=== PATIENT | female | born 1960 | race Caucasian/White ===

== ENCOUNTER 2016-11-30 22:10 | Emergency (ER) | payer MEDICARE ==
[~2016-11-30] VITALS: Ht 154.9 cm; Wt 71.9 kg
[2016-11-30 22:10] VITALS: BP 110/75
[~2016-11-30 22:10] MED LIST: ACET325T16 PO; ALBU8.5H3 IH; ASPI325T4 PO; CEPH-264 PO; CEPH500C PO; CYCL10TA2 PO; DICY10CA53 PO; HYDR25TA PO; IPRA3AMP NEB; LEVO500T38 PO; MELO15TA6 PO; METF500T4 PO; MONT10TA9 PO; NAPR500T3 PO; Nicotine TD; OSEL75CA PO; PANT40TA5 PO; PRED-220 PO; PRED20TA PO; PRED50TA PO; Promethazine Hcl/Codeine PO; SIMV20TA3 PO; SOLI10TA PO; SUCR1TAB PO; SUCR1TAB29 PO; TEMA15CA6 PO; TEMA30CA6 PO; TIOT18CA IH; TRAM50TA PO; TRAZ50TA15 PO
--- NOTE | 2016-11-30 22:31 | PHYS DOC ---
General Stated Complaint: RIGHT HIP PAIN Time Seen by MD: 22:19 Source: patient, family Problems: History of Present Illness Initial Comments Patient here for right hip pain. Patient says she slipped and fell in the shower several days ago. When she fell, she had no antecedent symptoms. There is no chest pain shortness of breath or arrhythmia symptoms. There is no change in vision or speech. There is no headache. There is no focal extremity or neurologic complaints. This really does seem like a mechanical fall. She did not hit her head and there was no loss of consciousness seizure activity, this. Since she landed on the edge between the shower the floor on her right hip. She was able to get up afterwards and has been able walk around the last several days. However, she had increasing pain for the last several days mostly over the area of the lateral hip and gluteus area on the right. She's had no fever or chills with this. There is no runny nose or sore throat. There is no chest pain or shortness of breath. She has no neck or back pain. Is no nausea vomiting or abdominal pain. There is no change in bowel or bladder habits and no incontinence. She denies any other acute focal extremity or neurologic complaints except for the pain as previous described. She has been able to be up and about at home without a cane or a walker, though with increasing pain last several days. Patient's taken some cyuc-ule-hlacolp pain medicine for this at home without help. She notes this worse when she gets up and weightbears. There is no other increased or decreasing factors noted. Patient's past nuchal history is rock for COPD, sleep apnea, and diabetes. She does not check her sugar regularly at home. She does smoke half pack of cigarettes daily. She is a nonuser of ethanol. Allergies: Coded Allergies: erythromycin base (Verified Allergy, Intermediate, 05/29/16) tetracycline (Verified Allergy, Intermediate, 05/29/16) vancomycin (Verified Allergy, Intermediate, 05/29/16) Penicillins (Verified Allergy, Mild, 11/12/15) Past Medical History Medical History: COPD, diabetes, other Surgical History: noncontributory, cholecystectomy, other Social History Smoker: less than 1 pack/day Alcohol: none Review of Systems All Other Systems: Reviewed and Negative Physical Exam General Appearance: WD/WN, no apparent distress Neck: full range of motion, supple, normal inspection Respiratory: lungs clear, normal breath sounds, no respiratory distress Cardiovascular: regular rate, rhythm, no edema Gastrointestinal: non tender, soft, no organomegaly Back: no CVA tenderness, no vertebral tenderness, other Extremities: normal inspection, other Neurologic/Psychiatric: no motor/sensory deficits, alert, normal mood/affect, oriented x 3 Skin: normal color Lymphatic: no adenopathy Comments Generally this well-developed well-nourished white female in no acute distress. Vitals are as noted. Pertinent findings on physical exam shows the chest to be clear. Cardiac vascular exam shows regular rate and rhythm without murmur. The abdomen is soft and nontender without masses or organomegaly. There is no perineal findings. Back shows no thoracic or lumbar vertebral tenderness. She has some mild tenderness over the low right lumbosacral paraspinal areas and over the right gluteal area. There is no signs of trauma. Externally show no rashes, cyanosis, or edema. She does have some mild to moderate tenderness over the area of the greater trochanter of the right hip. No signs of trauma. The hip is not shortened or rotated. There is no gross deformity. There is no distal motor sensory or vascular deficits noted within the right lower extremity. Neurologic exam finds her to be awake alert oriented 4 and cooperative. Remainder of physical exam is clinically unremarkable. Orders, Labs, Meds Old charts notes several prior ER visits for rash, depression, COPD, cellulitis , and pneumonia. She was last admitted to the hospital in October 2015 for pneumonia as well. X-rays the right hip show what appears to be a little bony spur versus a possible old fracture off the greater trochanter. This appears to be well rounded is does not appear to be acute. There is no other acute changes per the emergency physician. 2300 Patient resting comfortably ER. I discussed the patient the x-ray finding. She has no past history of hip injury that she knows of. I discussed with that this may represent an old injury or some arthritic changes, but certainly don't see anything acute that would require any further evaluation and care. She's getting no pain relief with [id number] medications so I' ll prescribe her some Ultram and a muscle relaxer. She states she does not have any seizure history. We'll give her first dose tonight prior to departure from the ED. We discussed further home care including rest, elevation, range of motion exercises, and warm compresses to the area. She voices understanding of the need to follow-up with primary care or return to the ER sooner as needed if worsening anyway. She looks well, in no acute discomfort distress, okay for discharge home at this time with . ALISHA MÉNDEZ MD Nov 30, 2016 22:31
[2016-11-30] MEDS: TRAMADOL 50 MG TABLET. PO ONE (23:20)
[2016-11-30] MEDS: CYCLOBENZAPRINE 10 MG TABLET. PO ONE (23:20)
--- NOTE | 2016-12-01 07:43 | RAD ---
Pelvis with right hip, 3 views, 11/30/2016: History: Fall, pain Mild cortical irregularity and soft tissue calcification along the lateral margin of the greater trochanter appears to be chronic, related to a tendinous insertion site. No acute fracture or dislocation is identified. The hip joint spaces are well-maintained with only mild marginal spurring. IMPRESSION: No acute bony abnormality is detected.
== END 2016-11-30 23:25 | disposition home or self-care (01) ==
LOC: ER 22:16
DX: M25.551 Pain in right hip (principal); J44.9 Chronic obstructive pulmonary disease, unspecified; E11.9 Type 2 diabetes mellitus without complications; F17.210 Nicotine dependence, cigarettes, uncomplicated; Z88.0 Allergy status to penicillin; Z88.1 Allergy status to other antibiotic agents; W01.0XXA Fall on same level from slipping, tripping and stumbling without subsequent striking against object, initial encounter; Y93.E1 Activity, personal bathing and showering; Y99.8 Other external cause status; Y92.89 Other specified places as the place of occurrence of the external cause
CPT/HCPCS: 73502; 99284

== ENCOUNTER 2016-12-18 15:33 | Emergency (ER) | payer MEDICARE ==
[~2016-12-18] VITALS: Ht 154.9 cm; Wt 68.0 kg
[~2016-12-18 15:33] MED LIST changes: -ALBU8.5H3 IH; +ALBU8.5H8 IH; -ASPI325T4 PO; +ASPI325T8 PO; +CYCL-331 PO; -CYCL10TA2 PO; -LEVO500T38 PO; +LEVO500T59 PO; -SOLI10TA PO; +SOLI10TA2 PO; -SUCR1TAB29 PO; +SUCR1TAB35 PO
[2016-12-18] MEDS ORDERED: KETOROLAC 60 MG/2 ML VIAL. IM ONE (16:45)
[2016-12-18 17:15] VITALS: BP 136/71
[2016-12-18] MEDS ORDERED: HYDR-971 PO (17:40)
--- NOTE | 2016-12-18 17:40 | PHYS DOC ---
Past History Past Medical History: Anxiety, COPD, Depression, Diabetes Past Surgical History: Cholecystectomy, Hysterectomy Alcohol Use: None Drug Use: None Adult General Chief Complaint Chief Complaint: MECHANICAL FALL HPI HPI Patient is a 56-year-old female who complains of left leg pain since she fell on some stairs about 1:30. She and her were moving furniture. She knew she hurt her leg but she tried to "walk it off" and did not present for about 2 hours. She has been ambulatory since the fall occurred. She did not take any thing for pain. She states the pain is getting worse. She doesn't believe she injured herself anywhere else. sHe does have a history of neuropathy, she was prescribed gabapentin but couldn' t take it due to adverse reaction. She does not have a history of a pinched nerve or any leg pain problem like this in the past. Patient is requesting a Dr. Truong. Review of Systems Review of Systems Constitutional: Denies fever or chills [] Eyes: Denies change in visual acuity, redness, or eye pain [] HENT: Denies nasal congestion or sore throat [] Respiratory: Denies cough or shortness of breath [] Cardiovascular: Denies chest pain GI: Denies abdominal pain, nausea, vomiting, Musculoskeletal: As in history of present illness Integument: Denies rash or skin lesions [] Neurologic: Denies head injury Current Medications Current Medications Current Medications Medications (Trade) Dose Ordered Sig/[place] Start Time Stop Time Status Last Admin Dose Admin Ketorolac Tromethamine (Toradol) 60 mg 1X ONCE 12/18/16 16:45 12/18/16 16:46 DC 12/18/16 16:34 60 MG Allergies Allergies Allergies Coded Allergies Type Severity Reaction Last Updated Verified erythromycin base Allergy Intermediate 05/29/16 Yes tetracycline Allergy Intermediate 05/29/16 Yes vancomycin Allergy Intermediate 05/29/16 Yes Penicillins Allergy Mild 11/12/15 Yes Physical Exam Physical Exam Constitutional: Well developed, well nourished, tearful with pain, alert, mentating normally. HENT: Normocephalic, atraumatic, no evidence of head or facial injury Eyes: conjunctiva normal, no discharge. [] Neck: Normal range of motion, no tenderness, no stridor. [] Skin: Warm, dry, no erythema, no rash. [] Extremities: Left leg: Normal appearance. No deformity, no swelling, no evidence of injury. Distal pulses intact. Foot warm with capillary refill less than 2 seconds. Patient jumps and cries out with even light palpation of the left leg from the middle of the thigh, knee, to the mid calf. No knee effusion or swelling. It seems like her most significant pain is in the posterior thigh. The thigh muscle is tight but not spasming. She is able to move the leg when she pulls away from palpation although states that she cannot move the leg due to pain. Neurologic: Alert and oriented X 3, normal motor function, normal sensory function, no focal deficits noted. [] Current Patient Data Vital Signs Vital Signs Date Time Temp Pulse Resp B/P (MAP) Pulse Ox O2 Delivery O2 Flow Rate FiO2 12/18/16 17:15 95 20 136/71 (92) 96 Room Air 12/18/16 15:33 98.0 EKG EKG [] Radiology/Procedures Radiology/Procedures X-rays of the left femur including the hip and knee obtained and read by me. No acute bony injury. [] Course & Med Decision Making Course & Med Decision Making Pertinent Labs and Imaging studies reviewed. (See chart for details) 56-year-old lady who fell and injured her left leg but who has been ambulatory for 2 hours after the fall but has increasing pain as she tried to "walk it off ". She is bitterly complaining of pain right now but the patient and her have repeatedly asked if she could have a Dr. Truong. I did ask her to hold off on that until we could see some x-rays. She was given an injection of Toradol for pain and x-rays were obtained. No acute bony injury noted. Her pain distribution is in the posterior aspect of her leg from the mid thigh down to the mid calf. It's really not in a distribution that I would suspect hip, knee, or other bony injury. She might have a muscle strain or it could be a nerve contusion causing sciatica. I rechecked her after x-rays, she is happily drinking a Mr. Kirill. Talked to the patient about ice, NSAIDs, for acute muscle strain. Patient will be going home with her and she is stable for discharge. [] Dragon Disclaimer Dragon Disclaimer This chart was dictated in whole or in part using Voice Recognition software in a busy, high-work load, and often noisy Emergency Department environment. It may contain unintended and wholly unrecognized errors or omissions. Departure Departure: Impression: Primary Impression: Muscle strain of left thigh Disposition: 01 HOME, SELF-CARE Condition: STABLE Referrals: JANUARY TRINH (PCP) Patient Instructions: Muscle Strain, Huts-pl-Numn Additional Instructions: Ice 15-20 minutes out of every 1-2 hours. Stretch the muscles gently from time to time. Do not lay perfectly still for hours and let your muscles tighten up. Get up and move around. Ibuprofen 800 mg every 8 hours for pain and inflammation. Hydrocodone if needed for more severe pain, this is an opiate, it will be sedating and constipating. Do not take while driving. This may be combined with ibuprofen. Scripts Hydrocodone Bit/Acetaminophen (NORCO 5-325 TABLET) 1 Each Tablet 1-2 TAB PO Q4-6HRS, #8 TAB Prov: ATTILA HUGHES MD 12/18/16 ATTILA HUGHES MD December 18, 2016 17:40
--- NOTE | 2016-12-19 09:09 | RAD ---
Indication fall, pain. AP and lateral views of the left femur were obtained. No bony abnormality is seen
== END 2016-12-18 17:50 | disposition home or self-care (01) ==
LOC: ER 15:33
DX: S76.912A Strain of unspecified muscles, fascia and tendons at thigh level, left thigh, initial encounter (principal); J44.9 Chronic obstructive pulmonary disease, unspecified; E11.9 Type 2 diabetes mellitus without complications; Z88.1 Allergy status to other antibiotic agents; Z88.0 Allergy status to penicillin; W10.8XXA Fall (on) (from) other stairs and steps, initial encounter; Y93.89 Activity, other specified; Y99.8 Other external cause status; Y92.89 Other specified places as the place of occurrence of the external cause
CPT/HCPCS: 73552; 96372; 99284; J1885

== ENCOUNTER 2017-05-19 15:15 | Emergency (ER) | payer MEDICARE ==
[~2017-05-19] VITALS: Ht 154.9 cm; Wt 71.9 kg
[~2017-05-19 15:15] MED LIST changes: +HYDR-971 PO; -NAPR500T3 PO; +NAPR500T4 PO
[2017-05-19 15:25] VITALS: BP 115/72
[2017-05-19] MEDS ORDERED: IBUP800T19 PO ×2 (15:42→15:45)
--- NOTE | 2017-05-19 16:21 | ED.ADGEN ---
Past History Past Medical History: Anxiety, COPD, Depression, Diabetes Past Surgical History: Cholecystectomy, Hysterectomy Alcohol Use: None Drug Use: None Adult General HPI HPI This is a pleasant 57-year-old female who presents immersed with chief complaint of left lateral rib and soft tissue tenderness. The patient is wearing a Holter monitor for approximately a month. She has 7 days left. The site of the patient's tenderness is with patient has been placing the Holter monitor leads. I believe patient has some soft tissue irritation. There is no signs of cellulitis. There is mild tenderness to palpation. There is no changes to the bony structures there is no deformity there is no erythema. 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 Review of Systems Review of Systems Constitutional: Denies fever or chills [] Eyes: Denies change in visual acuity, redness, or eye pain [] HENT: Denies nasal congestion or sore throat [] Respiratory: The patient reports chronic cough and shortness of air.[] Cardiovascular: No additional information not addressed in HPI [] GI: Denies abdominal pain, nausea, vomiting, bloody stools or diarrhea [] : Denies dysuria or hematuria [] Musculoskeletal: Denies back pain or joint pain [] Integument: The patient reports a mild skin irritation near the site where the Holter monitor leads have been placed of course the past month.] Neurologic: Denies headache, focal weakness or sensory changes [] Endocrine: Denies polyuria or polydipsia [] Allergies Allergies Allergies Coded Allergies Type Severity Reaction Last Updated Verified erythromycin base Allergy Intermediate 05/29/16 Yes gabapentin Allergy Intermediate Rash 03/03/17 Yes lisinopril Allergy Intermediate ANGIOEDEMA 03/03/17 Yes tetracycline Allergy Intermediate 05/29/16 Yes vancomycin Allergy Intermediate 05/29/16 Yes Penicillins Allergy Mild 11/12/15 Yes Physical Exam Physical Exam Constitutional: Well developed, well nourished, no acute distress, non-toxic appearance. [] HENT: Normocephalic, atraumatic, bilateral external ears normal, oropharynx moist, no oral exudates, nose normal. [] Eyes: PERRLA, EOMI, conjunctiva normal, no discharge. [] Neck: Normal range of motion, no tenderness, supple, no stridor. [] Cardiovascular:normal pulses [] Lungs & Thorax: no respiratory distress, patient breathes easily, mild chest wall tenderness to this area[] Abdomen: Bowel sounds normal, soft, no tenderness, no masses, no pulsatile masses. [] Skin: Warm, dry, no erythema, no rash. [] Back: No tenderness, no CVA tenderness. [] Extremities: No tenderness, no cyanosis, no clubbing, ROM intact, no edema. [] Neurologic: Alert and oriented X 3, normal motor function, normal sensory function, no focal deficits noted. [] Psychologic: Affect normal, judgement normal, mood normal. [] Current Patient Data Vital Signs Vital Signs Date Time Temp Pulse Resp B/P (MAP) Pulse Ox O2 Delivery O2 Flow Rate FiO2 05/19/17 15:25 98.0 85 20 97 Room Air EKG EKG [] Radiology/Procedures Radiology/Procedures [] Course & Med Decision Making Course & Med Decision Making Pertinent Labs and Imaging studies reviewed. (See chart for details) Discussed patient with plan for close follow-up and the plan to start Motrin patient was agreeable for plan the patient agrees to plan for discharge.[] Final Impression Final Impression skin irritation[] Problems: Dragon Disclaimer Dragon Disclaimer This electronic medical record was generated, in whole or in part, using a voice recognition dictation system. BARBARA WELLINGTON MD May 19, 2017 16:21
== END 2017-05-19 15:54 | disposition home or self-care (01) ==
LOC: ER 15:15
DX: L98.8 Other specified disorders of the skin and subcutaneous tissue (principal); R05 Cough; R06.02 Shortness of breath; J44.9 Chronic obstructive pulmonary disease, unspecified; E11.9 Type 2 diabetes mellitus without complications; F41.9 Anxiety disorder, unspecified; F32.9 Major depressive disorder, single episode, unspecified; Z90.49 Acquired absence of other specified parts of digestive tract; Z90.710 Acquired absence of both cervix and uterus; Z88.1 Allergy status to other antibiotic agents; Z88.0 Allergy status to penicillin; Z88.8 Allergy status to other drugs, medicaments and biological substances
CPT/HCPCS: 99283

== ENCOUNTER 2017-08-14 11:41 | Emergency (ER) | payer MEDICARE ==
[~2017-08-14] VITALS: Ht 157.5 cm; Wt 68.0 kg
[~2017-08-14 11:41] MED LIST changes: +IBUP800T19 PO
[2017-08-14 12:00] VITALS: BP 122/85
[2017-08-14] MEDS ORDERED: ORPHENADRINE CITRATE 60 MG/2 ML VIAL. IM ONE (12:30)
[2017-08-14] MEDS ORDERED: ONDANSETRON ODT 4 MG TAB.RAPDIS PO ONE (12:30)
[2017-08-14] MEDS ORDERED: MORPHINE SULFATE 10 MG/ML SYRINGE. IM ONE (12:30)
--- NOTE | 2017-08-14 12:39 | ED.ADGEN ---
Past History Past Medical History: Anxiety, COPD, Depression, Diabetes Past Surgical History: Cholecystectomy, Hysterectomy Alcohol Use: None Drug Use: None Adult General Chief Complaint Chief Complaint Left shoulder neck pain HPI HPI Patient is a 57 female who presents with left-sided neck and shoulder pain radiating down left arm. Pain is worse with arm and shoulder movement. It is not associated with motor weakness or loss of sensation. Patient denies trauma or repetitive strain injury. No prior surgeries. No chest pain or shortness of breath. No other symptoms or complaints. Review of Systems Review of Systems ROS as per HPI All other systems were reviewed and found to be within normal limits, except as documented in this note. Current Medications Current Medications Current Medications Medications (Trade) Dose Ordered Sig/[place] Start Time Stop Time Status Last Admin Dose Admin Morphine Sulfate (Morphine 10mg Syringe) 10 mg 1X ONCE 08/14/17 12:30 08/14/17 12:31 DC 08/14/17 12:09 10 MG Ondansetron HCl (Zofran Odt) 4 mg 1X ONCE 08/14/17 12:30 08/14/17 12:31 DC 08/14/17 12:09 4 MG Orphenadrine Citrate (Norflex) 60 mg 1X ONCE 08/14/17 12:30 08/14/17 12:31 DC 08/14/17 12:09 60 MG Allergies Allergies Allergies Coded Allergies Type Severity Reaction Last Updated Verified erythromycin base Allergy Intermediate 05/29/16 Yes gabapentin Allergy Intermediate Rash 03/03/17 Yes lisinopril Allergy Intermediate ANGIOEDEMA 03/03/17 Yes tetracycline Allergy Intermediate 05/29/16 Yes vancomycin Allergy Intermediate 05/29/16 Yes Penicillins Allergy Mild 11/12/15 Yes Physical Exam Physical Exam Constitutional: Well developed, well nourished, moderate discomfort secondary pain. [] HENT: Normocephalic, atraumatic, bilateral external ears normal, oropharynx moist, no oral exudates, nose normal. [] Eyes: PERRLA, EOMI, conjunctiva normal, no discharge. [] Neck: Supple, left mid paravertebral cervical pain, tenderness reproducing complaint. [] Cardiovascular:Heart rate regular rhythm, no murmur [] Lungs & Thorax: Bilateral breath sounds clear to auscultation [] Abdomen: Bowel sounds normal, soft, no tenderness, no masses, no pulsatile masses. [] Skin: Warm, dry, no erythema, no rash. [] Back: No tenderness, no CVA tenderness. [] Extremities: L Shoulder, limited adduction, abduction and rotation secondary pain. [] Neurologic: Alert and oriented X 3, upper extremity, no sensation deficits, motor function intact on limited exam. []al. [] Current Patient Data Vital Signs Vital Signs Date Time Temp Pulse Resp B/P (MAP) Pulse Ox O2 Delivery O2 Flow Rate FiO2 08/14/17 12:09 20 95 EKG EKG [EKG: Normal sinus rhythm, no acute ST-T wave changes, QTC normal. EKG interpreted by this physician.] Radiology/Procedures Radiology/Procedures [] Course & Med Decision Making Course & Med Decision Making Pertinent Labs and Imaging studies reviewed. (See chart for details) [Reproducible radicular neck and shoulder pain without neurologic deficits. EKG reassuring. I do not suspect cardiac etiology. Pain addressed. Concern for possible rotator cuff injury versus needed disc versus foraminal stenosis. Recommendations are supportive care with close PCP follow-up for further evaluation and treatment.] Final Impression Final Impression [1. Left shoulder pain 2. Cervical radiculopathy] Problems: Dragon Disclaimer Dragon Disclaimer This electronic medical record was generated, in whole or in part, using a voice recognition dictation system. VIK GRAY DO Aug 14, 2017 12:39
--- NOTE | 2017-08-14 12:42 | RAD ---
Cervical spine radiograph 08/14/2017 Indication: Cervical spine pain. Comparison: None available. Technique: AP, lateral, odontoid and Fuchs view of the cervical spine are provided. Findings: Alignment of the cervical spine is normal. No acute fracture is identified. Vertebral body heights are maintained. Anterior marginal osteophytosis is noted. There is no prevertebral soft tissue swelling. Mild multilevel facet arthropathy. Mild uncovertebral joint disease is noted at C5-C6. Lateral masses of C1 articulate appropriately with the C2 vertebral body. Impression: No acute fracture or malalignment involving the cervical spine.
--- NOTE | 2017-08-14 12:44 | RAD ---
Exam: Left shoulder radiograph Indication: Left shoulder pain Comparison: None available Technique: 3 views of the left shoulder are provided. Findings: There is no acute fracture or dislocation involving the acromioclavicular and glenohumeral joints. No joint space narrowing. No soft tissue swelling. No osseous erosion or soft tissue gas. Bone mineralization is within normal limits. Impression: No acute fracture or dislocation.
--- NOTE | 2017-08-14 15:09 | EKG ---
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
== END 2017-08-14 12:55 | disposition home or self-care (01) ==
LOC: ER 11:41
DX: M54.12 Radiculopathy, cervical region (principal); M25.512 Pain in left shoulder; E11.9 Type 2 diabetes mellitus without complications; J44.9 Chronic obstructive pulmonary disease, unspecified; F41.9 Anxiety disorder, unspecified; F32.9 Major depressive disorder, single episode, unspecified; Z88.1 Allergy status to other antibiotic agents; Z88.0 Allergy status to penicillin; Z88.8 Allergy status to other drugs, medicaments and biological substances
CPT/HCPCS: 72040; 73030; 93005; 96372; 99284; J2270; J2360; Q0162

== ENCOUNTER 2017-11-22 12:49 | Inpatient (IN) | payer MEDICARE ==
[~2017-11-22] VITALS: Ht 160 cm; Wt 70.5 kg
[~2017-11-22 12:49] MED LIST changes: +NAPR-514 PO; -NAPR500T4 PO
[2017-11-22] MEDS ORDERED: IV NORMAL SALINE 1,000ML 1,000 ML IV SCH ×2 (13:21→14:51)
--- NOTE | 2017-11-22 13:27 | PHYS DOC ---
Past History Past Medical History: Anxiety, COPD, Depression, Diabetes, Hypertension Past Surgical History: Cholecystectomy, Hysterectomy Smoking: Cigarettes, Less than 1pk/day Alcohol Use: None Drug Use: None Adult General Chief Complaint Chief Complaint: SHORTNESS OF BREATH HPI HPI She is a pleasant 57 showed female with known history of hypertension, COPD and diabetes who is noncompliant on no medications at this time and presents with two-day history of shortness of breath. Patient noted yesterday some tightness or sore chest with difficulty taking a deep breath in noted increased exercise tolerance The sleep on 3 pillows last night and upright position. Patient denies any change in medications She is on none at this time says she's had subjective fevers and sweats with her productive cough for the last day. Patient denies any chest pain but there is chest tightness. She denies any nausea, vomiting, diarrhea she says she has exertional dyspnea is gotten progressively worse as well. She denies any swelling her lower legs, travel outside the country, recent antibiotics or steroid usage. She is never been intubated in the past. She denies any URI symptoms like runny nose or congestion is to productive cough without ear pain or ear drainage or hearing loss Differential diagnosis: Acute myocardial ischemia, heart failure, cardiac tamponade, bronchospasm, pulmonary embolism, pneumothorax, pulmonary infection i.e. bronchitis or pneumonia, upper airway obstruction, anaphylaxis, aspiration , psychogenic, pulmonary contusion, toxidrome, pneumomediastinum, noncardiogenic pulmonary edema or ARDS, COPD, tuberculosis, cystic fibrosis, asthma, high altitude pulmonary edema, valvular dysfunction, cardiac dysrhythmia , stroke, neuromuscular diseases like myasthenia gravis gravis, ALS, Guillain- Holland syndrome, metabolic acidosis to include diabetic ketoacidosis, sepsis, and obstructive disorders like massive obesity Review of Systems Review of Systems Constitutional: Positive for fevers and subjective chills Eyes: Denies change in visual acuity, redness, or eye pain [] HENT: Denies nasal congestion or sore throat [] Respiratory: Positive for productive cough and shortness of breath Cardiovascular: No additional information not addressed in HPI [] GI: Denies abdominal pain, nausea, vomiting, bloody stools or diarrhea [] : Denies dysuria or hematuria [] Musculoskeletal: Denies back pain or joint pain [] Integument: Denies rash or skin lesions [] Neurologic: Denies headache, focal weakness or sensory changes positive for decreased excess tolerance[] Endocrine: Denies polyuria or polydipsia [] All other systems were reviewed and found to be within normal limits, except as documented in this note. Allergies Allergies Allergies Coded Allergies Type Severity Reaction Last Updated Verified erythromycin base Allergy Intermediate 05/29/16 Yes gabapentin Allergy Intermediate Rash 03/03/17 Yes lisinopril Allergy Intermediate ANGIOEDEMA 03/03/17 Yes tetracycline Allergy Intermediate 05/29/16 Yes vancomycin Allergy Intermediate 05/29/16 Yes Penicillins Allergy Mild 11/12/15 Yes Physical Exam Physical Exam Other vital signs recorded the chart this time patient noted to be mildly tachycardic likely stress not hypoxic satting 97% on room air though she is mildly tachypnea Constitutional: Well developed, well nourished, he is sitting in a tripod position in no acute distress nontoxic but is speaking in 8-12 word sentences no audible wheezing HENT: Normocephalic, atraumatic, bilateral external ears normal, oropharynx dry with poor dentition no oral exudates, nose normal. Eyes: PERRLA, EOMI, conjunctiva normal, no discharge. [] Neck: Normal range of motion, no tenderness, supple, no stridor. [] Cardiovascular:Heart rate regular rhythm, no murmur [] Lungs & Thorax: Decreased breath sounds in all lung ceron with expiratory wheezing. No rhonchi at the bases Abdomen: Bowel sounds normal, soft, no tenderness, no masses, no pulsatile masses. [] Skin: Warm, dry, no erythema, no rash. [] Back: No tenderness, no CVA tenderness. [] Extremities: No tenderness, no cyanosis, no clubbing, ROM intact, no edema. [] Neurologic: Alert and oriented X 3, normal motor function, normal sensory function, no focal deficits noted. [] Psychologic: Affect normal, judgement normal, mood normal. [] EKG EKG []EKG read by me patient arrival at 1:38 PM 11/22/2017 demonstrates a sinus rhythm with a P wave there were QRS there is a MO interval 152 which is normal, there is a QRS width of 84 to normal, QTC is 453 which is normal. Patient has T- wave inversions in the anterior leads and no ST segment elevation or T-wave changes consistent with acute coronary ischemia. This is an abnormal EKG Radiology/Procedures Radiology/Procedures [] [facility] [address] [place] [id number] IMAGING REPORT Signed PATIENT: DUNCAN HATCH ACCOUNT: [id number] : 1960 LOCATION: ER AGE: 57 SEX: F EXAM STATUS: REG ER ORD. PHYSICIAN: CAROLYN WAKEFIELD MD REASON: sob PROCEDURE: CHEST PA & LATERAL CHEST PA LATERAL History: short of breath, smoker for 20+years Comparison: Two-view chest May 29, 2016. Findings: The cardiomediastinal silhouette is normal. Pulmonary vasculature is normal. Calcified granuloma right midlung. The lungs are clear. No pleural effusion or pneumothorax is seen. There is no acute bone abnormality. IMPRESSION: No acute cardiopulmonary process. Electronically signed by: Benjy Anderson MD (11/22/2017 2:34 PM) [id number] DICTATED AND SIGNED BY: BENJY ANDERSON MD DATE: 11/22/17 1432 CC: CAROLYN WAKEFIELD MD; JANUARY TRINH ~ Course & Med Decision Making Course & Med Decision Making Pertinent Labs and Imaging studies reviewed. (See chart for details) []She presents with shortness breath and smoker no history of COPD and not comply with medications. She has wheezing and tightness in her chest as well as decreased breath sounds bilaterally I will complete a CBC, CMP, troponin, proBNP , chest x-ray, EKG, and overdose assign Medrol, DuoNeb's ciprofloxacin and appropriate supportive medications to help reduce her stress of breathing. Patient does not need BiPAP or CPAP at this time she is a known smoker happy with continued to smoke she is noncompliant with medications and that is purposeful she does not believe she needs them. Differential diagnosis: Acute myocardial ischemia, heart failure, cardiac tamponade, bronchospasm, pulmonary embolism, pneumothorax, pulmonary infection i.e. bronchitis or pneumonia, upper airway obstruction, anaphylaxis, aspiration , psychogenic, pulmonary contusion, toxidrome, pneumomediastinum, noncardiogenic pulmonary edema or ARDS, COPD, tuberculosis, cystic fibrosis, asthma, high altitude pulmonary edema, valvular dysfunction, cardiac dysrhythmia , stroke, neuromuscular diseases like myasthenia gravis gravis, ALS, Guillain- Holland syndrome, metabolic acidosis to include diabetic ketoacidosis, sepsis, and obstructive disorders like massive obesity was considered upon arrival given patient's noncompliance I believe this is likely COPD. A read by radiology reviewed by me demonstrate no acute pulmonary infiltrate or pulmonary edema Patient's EKG read by me as essentially unremarkable for signs of ischemia She received 3 duo nebs here in the emergency department as well as Solu-Medrol fluids and antibiotics. She is feeling better but she still feels short of breath. Her troponin is negative proBNP is negative. Patient's d-dimer is negative I will admit this patient to the hospital the fact she still feel short of breath I will admit her to the hospital under close evaluation for continued nebulizer treatments. We will continue to treat her with antibiotics as we wait for the blood cultures to be completed although there is no obvious evidence of cardiac ischemia at this time based on EKG and troponin findings and duration of symptoms patient obviously series of troponins completed and will see a floatman Laboratory Tests Test 11/22/17 13:00 11/22/17 13:35 11/22/17 13:45 Urine Collection Type Unknown Urine Color Straw Urine Clarity Clear Urine pH 6.5 Urine Specific [place] <=1.005 Urine Protein Neg (NEG-TRACE) Urine Glucose (UA) Neg mg/dL (NEG) Urine Ketones (Stick) Neg mg/dL (NEG) Urine Blood Neg (NEG) Urine Nitrite Neg (NEG) Urine Bilirubin Neg (NEG) Urine Urobilinogen Dipstick 0.2 mg/dL (0.2 mg/dL) Urine Leukocyte Esterase Neg (NEG) Urine RBC 0 /HPF (0-2) Urine WBC 0 /HPF (0-4) Urine Squamous Epithelial Cells Few /LPF Urine Bacteria 0 /HPF (0-FEW) White Blood Count 8.5 x10^3/uL (4.0-11.0) Red Blood Count 4.84 x10^6/uL (3.50-5.40) Hemoglobin 14.4 g/dL (12.0-15.5) Hematocrit 42.4 % (36.0-47.0) Mean Corpuscular Volume 88 fL (79-100) Mean Corpuscular Hemoglobin 30 pg (25-35) Mean Corpuscular Hemoglobin Concent 34 g/dL (31-37) Red Cell Distribution Width 13.3 % (11.5-14.5) Platelet Count 231 x10^3/uL (140-400) Neutrophils (%) (Auto) 71 % (31-73) Lymphocytes (%) (Auto) 23 % (24-48) L Monocytes (%) (Auto) 4 % (0-9) Eosinophils (%) (Auto) 1 % (0-3) Basophils (%) (Auto) 1 % (0-3) Neutrophils # (Auto) 6.1 x10^3uL (1.8-7.7) Lymphocytes # (Auto) 1.9 x10^3/uL (1.0-4.8) Monocytes # (Auto) 0.4 x10^3/uL (0.0-1.1) Eosinophils # (Auto) 0.1 x10^3/uL (0.0-0.7) Basophils # (Auto) 0.1 x10^3/uL (0.0-0.2) D-Dimer (Carolyn) 0.48 mg/L (0.00-0.50) Sodium Level 139 mmol/L (136-145) Potassium Level 3.4 mmol/L (3.5-5.1) L Chloride Level 101 mmol/L (98-107) Carbon Dioxide Level 27 mmol/L (21-32) Anion Gap 11 (6-14) Blood Urea Nitrogen 14 mg/dL (7-20) Creatinine 0.8 mg/dL (0.6-1.0) Estimated GFR (Cockcroft-Gault) 74.2 Glucose Level 192 mg/dL (70-99) H Lactic Acid Level 1.6 mmol/L (0.4-2.0) Calcium Level 9.1 mg/dL (8.5-10.1) Magnesium Level 1.8 mg/dL (1.8-2.4) Total Bilirubin 0.2 mg/dL (0.2-1.0) Direct Bilirubin < 0.1 mg/dL (0.0-0.2) Aspartate Amino Transferase (AST) 14 U/L (15-37) L Alanine Aminotransferase (ALT) 34 U/L (14-59) Alkaline Phosphatase 87 U/L (46-116) Creatine Kinase 44 U/L (26-192) Creatine Kinase MB (Mass) 0.9 ng/mL (0.0-3.6) Creatine Kinase MB Relative Index 2.0 % (0-4) Troponin I Quantitative < 0.017 ng/mL (0-0.055) MS-Wow-N-Type Natriuretic Peptide 12 pg/mL (0-124) Total Protein 7.1 g/dL (6.4-8.2) Albumin 3.7 g/dL (3.4-5.0) Lipase 117 U/L (73-393) Influenza Type A (Rapid) Negative (NEGATIVE) Influenza Type B (Rapid) Negative (NEGATIVE) Patient: Swab a and B are negative, patient's lactic acid is 1.6 which is negative, patient's LFTs are normal. [facility] note: Dr. LEATHA Torre [facility] called at of the service internal medicine service patient initially at 2:50 PM Consult called back at 2:51 PM Discussed the case I presented and they agreed with admission. Time of acceptance 2:51 PM "I have assessed this patient clinically and believe that their condition requires an admission to the hospital. After consulting the admitting physician about this case, they have asked that I admit this patient to their service as an inpatient based on the clinical presentation and my impression." Impression: COPD exacerbation, increased shortness of breath Dragon Disclaimer Dragon Disclaimer This electronic medical record was generated, in whole or in part, using a voice recognition dictation system. Departure Departure: Impression: Primary Impression: COPD with exacerbation Disposition: ADMITTED INPATIENT Admitting Physician: Robert Guthrie Condition: GUARDED Referrals: JANUARY TRINH (PCP) CAROLYN WAKEFIELD MD Nov 22, 2017 13:27
--- NOTE | 2017-11-22 13:42 | EKG ---
[address] [address] Test Date: 2017-11-22 Test Time: 13:38:45 Pat Name: DUNCAN HATCH Department: Room: Gender: F [employer]: : 1960 Requested By: CAROLYN WAKEFIELD Order Number: [id number] Reading MD: James Akins MD Measurements Intervals [place] Rate: 95 P: 35 ID: [id number] QRS: 51 QRSD: 84 T: 39 QT: 358 QTc: 453 Interpretive Statements SINUS RHYTHM Electronically Signed On 11-24-2017 16:38:23 CDT by James Akins MD
[2017-11-22] MEDS ORDERED: LORazepam 2 MG/ML VIAL IV ONE (13:45)
[2017-11-22] MEDS ORDERED: CIPROFLOXACIN 400MG PREMIX 200 ML IV ONE (13:45)
[2017-11-22] MEDS ORDERED: methylPREDNISolone SOD SUCC PF 125 MG/2 ML VIAL. IV ONE (13:45)
[2017-11-22] MEDS ORDERED: 0.9 % SODIUM CHLORIDE 10 ML DISP.SYRIN. IV ONE (13:45)
[2017-11-22] MEDS ORDERED: ALBUTEROL SULFATE 2.5 MG/3 ML NEBU. CONT NEB ONE (13:45)
[2017-11-22] MEDS ORDERED: ASPIRIN 81 MG TAB.CHEW PO ONE (13:45)
[2017-11-22] MEDS ORDERED: IPRATRPIUM/ALBUTEROL 0.5/2.5MG 3 ML NEBU. NEB ONE (13:45)
[2017-11-22 14:02] LABS: BASO # 0.1 x10^3/uL (0.0-0.2); BASO % 1 % (0-3); EOS # 0.1 x10^3/uL (0.0-0.7); EOS % 1 % (0-3); HEMATOCRIT 42.4 % (36.0-47.0); HEMOGLOBIN 14.4 g/dL (12.0-15.5); LYMPH # 1.9 x10^3/uL (1.0-4.8); LYMPH % 23 % (24-48); MEAN CORPUSCULAR HEMOGLOBIN 30 pg (25-35); MEAN CORPUSCULAR HGB CONC 34 g/dL (31-37); MEAN CORPUSCULAR VOLUME 88 fL (79-100); MONO # 0.4 x10^3/uL (0.0-1.1); MONO % 4 % (0-9); NEUT # 6.1 x10^3uL (1.8-7.7); NEUT % 71 % (31-73); PLATELET COUNT 231 x10^3/uL (140-400); RED BLOOD COUNT 4.84 x10^6/uL (3.50-5.40); RED CELL DISTRIBUTION WIDTH 13.3 % (11.5-14.5); WHITE BLOOD COUNT 8.5 x10^3/uL (4.0-11.0)
[2017-11-22 14:06] LABS: BACTERIA,URINE 0 /HPF (0-FEW); BILIRUBIN,URINE NEG (NEG); CLARITY,URINE CLEAR; COLOR,URINE STRAW; GLUCOSE,URINE NEG (NEG); NITRITE,URINE NEG (NEG); RBC,URINE 0 /HPF (0-2); UROBILINOGEN,URINE 0.2 mg/dL (0.2 mg/dL); WBC,URINE 0 /HPF (0-4)
[2017-11-22 14:07] LABS: SQUAMOUS EPITHELIAL CELL,UR FEW /LPF
[2017-11-22 14:11] LABS: INFLUENZA A PATIENT NEGATIVE (NEGATIVE)
[2017-11-22 14:12] LABS: INFLUENZA B PATIENT NEGATIVE (NEGATIVE)
[2017-11-22 14:16] LABS: ALBUMIN 3.7 g/dL (3.4-5.0); ALK PHOS 87 U/L (46-116); ALT (SGPT) 34 U/L (14-59); ANION GAP 11 (6-14); AST (SGOT) 14 U/L (15-37); BLOOD UREA NITROGEN 14 mg/dL (7-20); CALCIUM 9.1 mg/dL (8.5-10.1); CARBON DIOXIDE 27 mmol/L (21-32); CHLORIDE 101 mmol/L (98-107); CREATININE 0.8 mg/dL (0.6-1.0); GFR 74.2; GLUCOSE 192 mg/dL (70-99); LIPASE 117 U/L (73-393); MAGNESIUM 1.8 mg/dL (1.8-2.4); POTASSIUM 3.4 mmol/L (3.5-5.1); SODIUM 139 mmol/L (136-145); TOTAL BILIRUBIN 0.2 mg/dL (0.2-1.0); TOTAL PROTEIN 7.1 g/dL (6.4-8.2)
[2017-11-22 14:18] LABS: DIRECT BILIRUBIN < 0.1 mg/dL (0.0-0.2)
--- NOTE | 2017-11-22 14:37 | RAD ---
CHEST PA LATERAL History: short of breath, smoker for 20+years Comparison: Two-view chest May 29, 2016. Findings: The cardiomediastinal silhouette is normal. Pulmonary vasculature is normal. Calcified granuloma right midlung. The lungs are clear. No pleural effusion or pneumothorax is seen. There is no acute bone abnormality. IMPRESSION: No acute cardiopulmonary process. Electronically signed by: Benjy Anderson MD (11/22/2017 2:34 PM) [id number]
[2017-11-22] MEDS ORDERED: ACETAMINOPHEN 325 MG TABLET PO PRN (15:00)
[2017-11-22] MEDS ORDERED: ONDANSETRON PF 4 MG/2 ML VIAL. IV PRN (15:00)
[2017-11-22] MEDS ORDERED: MORPHINE SULFATE 4 MG/ML DISP.SYRIN. IV PRN (15:00)
[2017-11-22] MEDS ORDERED: IPRATRPIUM/ALBUTEROL 0.5/2.5MG 3 ML NEBU. NEB SCH (16:00)
[2017-11-22 17:18] VITALS: BP 95/59
--- NOTE | 2017-11-22 18:54 | HP ---
ADMIT DATE: 11/22/2017 HISTORY OF PRESENT ILLNESS: The patient is a 57-year-old female patient who came to the Emergency Room complaining of shortness of breath that started yesterday with some chest tightness and sore chest, difficulty taking a deep breath. She said she sleep on 3 pillows last night in upright position. She is not taking any medication. Did complain of subjective fevers, sweats with her productive cough the last day. She denied any chest pain, but chest tightness. Denied any nausea, vomiting, diarrhea, but her exertional dyspnea has progressively worse. Denied any swelling of the legs. She has not had any treatment with antibiotic or steroids recently. She has never been intubated in the past. She denied any upper respiratory infection symptoms. She was investigated in the Emergency Room, and basically was found that chest x-ray showed no evidence of any acute cardiopulmonary process and was admitted with diagnosis of COPD exacerbation. PAST MEDICAL HISTORY: Significant for COPD, type 2 diabetes. PAST SURGICAL HISTORY: Significant for cholecystectomy, carpal tunnel release x 2, ankle surgery. FAMILY HISTORY: Unremarkable. SOCIAL HISTORY: She lives with her daughter. She smokes a pack a day, does not drink alcohol or use recreational drugs. REVIEW OF SYSTEMS: As per history of present illness. PHYSICAL EXAMINATION GENERAL: When I examined her this afternoon, she was sitting slightly propped up in bed, in no apparent respiratory distress. No pallor, jaundice, cyanosis, or thyromegaly. No jugular venous distension. No lower limb edema. VITAL SIGNS: Her heart rate was 90, blood pressure was 95/59, temperature was 97.6, respiratory rate 20, and oxygen saturation was 96%. HEAD, EYES, EARS, NOSE AND THROAT: Showed normocephalic, atraumatic. NECK: Supple. HEART: Showed normal first and second heart sounds with no gallop, rub or murmur. CHEST: Showed that she has central trachea, equally reduced expansion, reduced air entry, vesicular breath sounds. I could not really appreciate any crepitation or rhonchi. ABDOMEN: Distended, soft, nontender. NEUROLOGICAL: She is awake, alert, responding appropriately. All cranial nerves are intact. She moves extremities without difficulty. She ambulates without assistance or assistive devices. LABORATORY DATA: White cell count of 8500, hemoglobin 14, hematocrit 42, MCV 88 and platelet count 231,000. Her serum sodium was 139, potassium 3.4, chloride 101, bicarbonate 27, anion gap 14, creatinine 0.8, estimated GFR was 74, glucose 192, calcium was 9.1, magnesium 1.8. Total bilirubin, AST, ALT, alkaline phosphatase were normal. Her total protein was 7.1, albumin 3.7. D-dimer was 0.48. Urinalysis was essentially unremarkable. Her influenza A and B were both negative. As I stated, her chest x-ray showed no acute cardiopulmonary process. ASSESSMENT AND PLAN: The patient was admitted and was given steroids and bronchodilator as well as ciprofloxacin. We will continue with all these medications, evaluate her tomorrow. LALO DOMINIQUE MD DR: SHANICE/maine JOB#: [id number] / [id number]
[2017-11-22 19:30] VITALS: BP 131/81
[2017-11-22] MEDS: CIPROFLOXACIN HCL 500 MG TABLET PO SCH (20:33)
[2017-11-22] MEDS: metFORMIN XR 500 MG TAB.ER.24H PO SCH (20:33)
[2017-11-22] MEDS: MONTELUKAST 10 MG TABLET. PO SCH (20:33)
[2017-11-22] MEDS: LACTOBACILLUS RHAMNOSUS GG 1 CAPSULE. PO SCH (20:33)
[2017-11-22] MEDS: IPRATRPIUM/ALBUTEROL 0.5/2.5MG 3 ML NEBU. NEB SCH (21:19)
[2017-11-22] MEDS: methylPREDNISolone SOD SUCC PF 40 MG/ML VIAL. IV SCH (22:00)
[2017-11-22 22:50] VITALS: BP 113/70
[2017-11-23] MEDS: methylPREDNISolone SOD SUCC PF 40 MG/ML VIAL. IV SCH ×3 (05:33→21:29)
[2017-11-23 05:40] VITALS: BP 129/71
[2017-11-23] MEDS: IPRATRPIUM/ALBUTEROL 0.5/2.5MG 3 ML NEBU. NEB SCH ×4 (05:46→21:15)
[2017-11-23] MEDS: CIPROFLOXACIN HCL 500 MG TABLET PO SCH ×2 (08:04→21:28)
[2017-11-23] MEDS: LACTOBACILLUS RHAMNOSUS GG 1 CAPSULE. PO SCH ×2 (08:04→21:28)
[2017-11-23] MEDS: metFORMIN XR 500 MG TAB.ER.24H PO SCH ×2 (08:04→17:04)
[2017-11-23 10:21] VITALS: BP 154/76
[2017-11-23 14:42] VITALS: BP 110/60
[2017-11-23] MEDS: ACETAMINOPHEN 325 MG TABLET PO PRN (15:18)
[2017-11-23 19:12] VITALS: BP 141/76
[2017-11-23] MEDS ORDERED: POLYETHYLENE GLYCOL 3350 17 GM PACKET. PO PRN (20:00)
--- NOTE | 2017-11-23 21:11 | PN ---
DATE: 11/23/2017 SUBJECTIVE: The patient is sitting in the edge of the bed. Continued to have marked wheezing and chest tightness. Did have cough, is mostly dry, and continued to complain of shortness of breath on exertion, although her oxygen saturation is actually 95-94% on room air. OBJECTIVE: GENERAL: When I examined her, she looked well. No pallor, jaundice, cyanosis, or thyromegaly. No jugular venous distension. No lower limb edema. VITAL SIGNS: Her heart rate was 97, blood pressure was 154/76, temperature was 98.2, respiratory rate was 20, and oxygen saturation was 96%. HEAD, EYES, EARS, NOSE AND THROAT: Showed normocephalic, atraumatic. NECK: Supple. HEART: Showed normal first and second sounds. No gallop or murmur. CHEST: Shows central trachea, equally reduced expansion, reduced air entry with diffuse rhonchi. I could not appreciate any crepitation. ABDOMEN: Distended, soft, nontender. NEUROLOGIC: She was awake, alert, responding appropriately. All cranial nerves intact. She moves extremities without difficulty. She ambulates without assistance or assistive devices. LABORATORY DATA: As of this morning showed that his white cell count was 8500, hemoglobin 14.4, hematocrit 42, MCV 88 and platelet count of 251,000. Her chemistry showed that her serum sodium was 139, potassium 3.4, chloride 101, bicarbonate 27, anion gap of 11, BUN 14, creatinine 0.8, calcium was 9.1, magnesium 1.8. ASSESSMENT: 1. Chronic obstructive pulmonary disease exacerbation. 2. Type 2 diabetes. PLAN: Continue with IV steroids. Continue with antibiotic in the form of ciprofloxacin, continue with albuterol and Atrovent as well as Singulair and decide further management accordingly. LALO DOMINIQUE MD DR: SHANICE/maine JOB#: [id number] / [id number]
[2017-11-23] MEDS: DOCUSATE SODIUM 100 MG CAPSULE PO SCH (21:28)
[2017-11-23] MEDS: MONTELUKAST 10 MG TABLET. PO SCH (21:28)
[2017-11-23 22:35] VITALS: BP 151/85
[2017-11-24] MEDS: ACETAMINOPHEN 325 MG TABLET PO PRN ×2 (04:58→10:41)
[2017-11-24 05:03] VITALS: BP 131/81
[2017-11-24] MEDS: methylPREDNISolone SOD SUCC PF 40 MG/ML VIAL. IV SCH (05:46)
[2017-11-24] MEDS: IPRATRPIUM/ALBUTEROL 0.5/2.5MG 3 ML NEBU. NEB SCH ×2 (05:50→09:46)
[2017-11-24 06:30] LABS: HEMATOCRIT 39.5 % (36.0-47.0); HEMOGLOBIN 13.1 g/dL (12.0-15.5); RED BLOOD COUNT 4.47 x10^6/uL (3.50-5.40); RED CELL DISTRIBUTION WIDTH 13.8 % (11.5-14.5); WHITE BLOOD COUNT 19.1 x10^3/uL (4.0-11.0)
[2017-11-24 06:39] LABS: ALBUMIN 3.6 g/dL (3.4-5.0); ALBUMIN/GLOBULIN RATIO 1.1 (1.0-1.7); CALCIUM 9.4 mg/dL (8.5-10.1); CREATININE 0.8 mg/dL (0.6-1.0); GFR 74.2; POTASSIUM 4.7 mmol/L (3.5-5.1); TOTAL BILIRUBIN 0.2 mg/dL (0.2-1.0)
[2017-11-24] MEDS: DOCUSATE SODIUM 100 MG CAPSULE PO SCH (08:04)
[2017-11-24] MEDS: LACTOBACILLUS RHAMNOSUS GG 1 CAPSULE. PO SCH (08:04)
[2017-11-24] MEDS: metFORMIN XR 500 MG TAB.ER.24H PO SCH (08:04)
[2017-11-24] MEDS: CIPROFLOXACIN HCL 500 MG TABLET PO SCH (08:04)
[2017-11-24 10:52] VITALS: BP 120/70
--- NOTE | 2017-11-24 18:00 | DS ---
DATE OF DISCHARGE: 11/24/2017 HOSPITAL COURSE: The patient is a 57-year-old female patient who came with a complaint of increasing shortness of breath, severe chest tightness and marked diminished air entry. She was admitted with COPD exacerbation, was started on IV steroids, IV antibiotics, and bronchodilators. She did actually extremely well. PHYSICAL EXAMINATION: GENERAL: When I saw her today, she was sitting on the edge of the bed comfortably, in no apparent distress. No pallor, jaundice, cyanosis, or thyromegaly. No jugular venous distension. No limb edema. VITAL SIGNS: Her heart rate was 100, blood pressure 120/70, temperature 97.4, respiratory rate 20, and oxygen saturation was 96% on room air. HEAD, EYES, EARS, NOSE AND THROAT: Normocephalic, atraumatic. NECK: Supple. HEART: Showed normal first and second heart sounds. No gallop, rub or murmur. CHEST: Clear to auscultation. No crepitation or rhonchi. Air entry is really dramatically improved. ABDOMEN: Soft, nontender. NEUROLOGIC: She was awake, alert, responding appropriately. Cranial nerves intact. EXTREMITIES: She moves extremities without difficulty. She ambulates without assistance or assistive devices. LABORATORY DATA: Lab work showed his white cell count slightly elevated at 19,000 secondary to steroids, hemoglobin 13, hematocrit 39, MCV 89 and platelet count of 356,000. Her chemistry showed a serum sodium 135, potassium 4.7, chloride 102, bicarbonate 22, anion gap of 11, BUN 20, creatinine 0.8, estimated GFR was 74 mL per minute. Her glucose 180, calcium was 9.4. Total bilirubin, AST, ALT, alkaline phosphatase were normal. Total protein 7, albumin 3.6. DISCHARGE MEDICATIONS: The patient was discharged home to continue on ciprofloxacin 500 mg twice a day for 5 days, metformin 500 mg extended release twice a day, pravastatin 20 mg once a day and also a tapering course of steroids. FINAL DISCHARGE DIAGNOSES: Chronic obstructive pulmonary disease exacerbation, type 2 diabetes, and hyperlipidemia. LALO DOMINIQUE MD DR: SHANICE/maine JOB#: [id number] / [id number]
== END 2017-11-24 14:00 | disposition home or self-care (01) | DRG 192 ==
LOC: ER 12:49 → 1 SOUTH 14:45
PROVIDERS: ADMIT Internal Medicine; ATTEND Internal Medicine
DX: J44.1 Chronic obstructive pulmonary disease with (acute) exacerbation (principal); E11.9 Type 2 diabetes mellitus without complications; E78.5 Hyperlipidemia, unspecified; F17.210 Nicotine dependence, cigarettes, uncomplicated; I10 Essential (primary) hypertension; F32.9 Major depressive disorder, single episode, unspecified; F41.9 Anxiety disorder, unspecified; Z90.710 Acquired absence of both cervix and uterus; Z90.49 Acquired absence of other specified parts of digestive tract; Z91.14 Patient's other noncompliance with medication regimen; Z88.1 Allergy status to other antibiotic agents; Z88.0 Allergy status to penicillin; Z88.8 Allergy status to other drugs, medicaments and biological substances
CPT/HCPCS: 36415; 71046; 80048; 80053; 80076; 81001; 82553; 82947; 83605; 83690; 83735; 83880; 84484; 85025; 85027; 85379; 87040; 87804; 93005; 94640; 94644; 96365; 96375; 99406; J0744; J2060; J2270; J2920; J2930; J7613; J7620; 99285-25; J7030

== ENCOUNTER 2018-01-09 14:40 | Emergency (ER) | payer MEDICARE ==
[~2018-01-09] VITALS: Ht 154.9 cm; Wt 69.3 kg
[~2018-01-09 14:40] MED LIST changes: -METF500T4 PO; +METF500T5 PO
[2018-01-09] MEDS ORDERED: IV NORMAL SALINE 1,000ML 1,000 ML IV SCH (14:55)
--- NOTE | 2018-01-09 15:03 | EKG ---
[address] [address] Test Date: 2018-01-09 Test Time: 14:57:06 Pat Name: DUNCAN HATCH Department: Room: Gender: F Clinical Rehabilitation Liaison: SONIA : 1960 Requested By: VIK CORDOVA Order Number: [id number] Reading MD: Measurements Intervals [place] Rate: 95 P: 44 AR: 158 QRS: 45 QRSD: 84 T: 31 QT: 372 QTc: 471 Interpretive Statements SINUS RHYTHM LEFT ATRIAL ABNORMALITY QRS(T) CONTOUR ABNORMALITY CONSIDER ANTEROSEPTAL MYOCARDIAL DAMAGE ABNORMAL ECG RI6.01 No previous ECG available for comparison
[2018-01-09] MEDS ORDERED: ASPIRIN 81 MG TAB.CHEW PO ONE (15:15)
[2018-01-09 15:22] LABS: BASO # 0.1 x10^3/uL (0.0-0.2); BASO % 1 % (0-3); EOS # 0.1 x10^3/uL (0.0-0.7); EOS % 2 % (0-3); HEMOGLOBIN 13.2 g/dL (12.0-15.5); LYMPH # 2.5 x10^3/uL (1.0-4.8); LYMPH % 31 % (24-48); MEAN CORPUSCULAR HEMOGLOBIN 29 pg (25-35); MEAN CORPUSCULAR HGB CONC 34 g/dL (31-37); MEAN CORPUSCULAR VOLUME 87 fL (79-100); MONO # 0.4 x10^3/uL (0.0-1.1); MONO % 5 % (0-9); NEUT # 4.9 x10^3uL (1.8-7.7); NEUT % 61 % (31-73); PLATELET COUNT 193 x10^3/uL (140-400); RED CELL DISTRIBUTION WIDTH 13.2 % (11.5-14.5); WHITE BLOOD COUNT 7.9 x10^3/uL (4.0-11.0)
[2018-01-09 15:45] LABS: ALBUMIN 3.8 g/dL (3.4-5.0); ALBUMIN/GLOBULIN RATIO 1.3 (1.0-1.7); CALCIUM 8.6 mg/dL (8.5-10.1); CREATININE 0.8 mg/dL (0.6-1.0); GFR 74.2; POTASSIUM 3.5 mmol/L (3.5-5.1); TOTAL BILIRUBIN 0.3 mg/dL (0.2-1.0); TOTAL PROTEIN 6.8 g/dL (6.4-8.2)
--- NOTE | 2018-01-09 15:45 | RAD ---
PORTABLE CHEST 1V dated 01/09/2018 3:20 PM. Comparison: 11/22/2017 Clinical Indication: CHEST PAIN. Findings: Single upright portable exam performed. Heart and mediastinal contours are stable. Lungs are clear without focal consolidation. There is some mild increased density at the infrahilar region on the right relative to the prior exam. No pleural effusion or pneumothorax. Mild bilateral perihilar thickening. Impression: Mild perihilar thickening with patchy infrahilar opacity in the right, nonspecific. This could be related to bronchial inflammatory process, atelectasis or early pneumonia. If indicated, a PA and lateral exam would better evaluate.. Electronically signed by: Nakul Cazares MD (01/09/2018 3:42 PM) [facility] [place]
--- NOTE | 2018-01-09 15:57 | PHYS DOC ---
Past History Past Medical History: Anxiety, COPD, Depression, Diabetes, Hypertension Past Surgical History: Cholecystectomy, Hysterectomy, Other Smoking: Cigarettes, Less than 1pk/day Alcohol Use: Rarely Drug Use: None Adult General Chief Complaint Chief Complaint: CHEST PAIN HPI HPI 57-year-old female presents with left-sided chest pain that lasted for about 5 minutes. She denies diaphoresis or shortness of breath with the pain. She states that this came on suddenly earlier today and she was concerned. Pain was a sharp pain just above her left breast 6 out of 10. At this time it has completely resolved. She denies fever or chills. She has had a cough that is productive of yellowish sputum for the last 5 days. Review of Systems Review of Systems Constitutional: Denies fever or chills [] Eyes: Denies change in visual acuity, redness, or eye pain [] HENT: Denies nasal congestion or sore throat [] Respiratory: Denies shortness of breath [] Cardiovascular: No additional information not addressed in HPI [] GI: Denies abdominal pain, nausea, vomiting, bloody stools or diarrhea [] : Denies dysuria or hematuria [] Musculoskeletal: Denies back pain or joint pain [] Integument: Denies rash or skin lesions [] Neurologic: Denies headache, focal weakness or sensory changes [] Endocrine: Denies polyuria or polydipsia [] All other systems were reviewed and found to be within normal limits, except as documented in this note. Current Medications Current Medications Current Medications Medications (Trade) Dose Ordered Sig/[place] Start Time Stop Time Status Last Admin Dose Admin Aspirin (Children'S Aspirin) 324 mg 1X ONCE 01/09/18 15:15 01/09/18 15:16 DC 01/09/18 15:18 324 MG Sodium Chloride 1,000 ml @ 1,000 mls/hr Q1H 01/09/18 14:55 01/09/18 15:54 DC 01/09/18 15:19 1,000 MLS/HR Allergies Allergies Allergies Coded Allergies Type Severity Reaction Last Updated Verified erythromycin base Allergy Intermediate 01/09/18 Yes gabapentin Allergy Intermediate Rash 01/09/18 Yes lisinopril Allergy Intermediate ANGIOEDEMA 01/09/18 Yes tetracycline Allergy Intermediate 01/09/18 Yes vancomycin Allergy Intermediate 01/09/18 Yes Penicillins Allergy Mild 01/09/18 Yes Physical Exam Physical Exam Constitutional: Well developed, well nourished, no acute distress, non-toxic appearance. [] HENT: Normocephalic, atraumatic, bilateral external ears normal, oropharynx moist, no oral exudates, nose normal. [] Eyes: PERRLA, EOMI, conjunctiva normal, no discharge. [] Neck: Normal range of motion, no tenderness, supple, no stridor. [] Cardiovascular:Heart rate regular rhythm, no murmur [] Lungs & Thorax: Bilateral breath sounds clear to auscultation [] Abdomen: Bowel sounds normal, soft, no tenderness, no masses, no pulsatile masses. [] Skin: Warm, dry, no erythema, no rash. [] Back: No tenderness, no CVA tenderness. [] Extremities: No tenderness, no cyanosis, no clubbing, ROM intact, no edema. [] Neurologic: Alert and oriented X 3, normal motor function, normal sensory function, no focal deficits noted. [] Psychologic: Affect normal, judgement normal, mood normal. [] Current Patient Data Vital Signs Vital Signs Date Time Temp Pulse Resp B/P (MAP) Pulse Ox O2 Delivery O2 Flow Rate FiO2 01/09/18 14:45 98.1 98 18 96 Room Air Lab Results Laboratory Tests Test 01/09/18 15:05 01/09/18 15:19 White Blood Count 7.9 x10^3/uL (4.0-11.0) Red Blood Count 4.50 x10^6/uL (3.50-5.40) Hemoglobin 13.2 g/dL (12.0-15.5) Hematocrit 39.0 % (36.0-47.0) Mean Corpuscular Volume 87 fL (79-100) Mean Corpuscular Hemoglobin 29 pg (25-35) Mean Corpuscular Hemoglobin Concent 34 g/dL (31-37) Red Cell Distribution Width 13.2 % (11.5-14.5) Platelet Count 193 x10^3/uL (140-400) Neutrophils (%) (Auto) 61 % (31-73) Lymphocytes (%) (Auto) 31 % (24-48) Monocytes (%) (Auto) 5 % (0-9) Eosinophils (%) (Auto) 2 % (0-3) Basophils (%) (Auto) 1 % (0-3) Neutrophils # (Auto) 4.9 x10^3uL (1.8-7.7) Lymphocytes # (Auto) 2.5 x10^3/uL (1.0-4.8) Monocytes # (Auto) 0.4 x10^3/uL (0.0-1.1) Eosinophils # (Auto) 0.1 x10^3/uL (0.0-0.7) Basophils # (Auto) 0.1 x10^3/uL (0.0-0.2) Sodium Level 140 mmol/L (136-145) Potassium Level 3.5 mmol/L (3.5-5.1) Chloride Level 103 mmol/L (98-107) Carbon Dioxide Level 25 mmol/L (21-32) Anion Gap 12 (6-14) Blood Urea Nitrogen 14 mg/dL (7-20) Creatinine 0.8 mg/dL (0.6-1.0) Estimated GFR (Cockcroft-Gault) 74.2 BUN/Creatinine Ratio 18 (6-20) Glucose Level 133 mg/dL (70-99) H Calcium Level 8.6 mg/dL (8.5-10.1) Total Bilirubin 0.3 mg/dL (0.2-1.0) Aspartate Amino Transferase (AST) 14 U/L (15-37) L Alanine Aminotransferase (ALT) 27 U/L (14-59) Alkaline Phosphatase 95 U/L (46-116) Troponin I Quantitative < 0.017 ng/mL (0-0.055) DS-Qlf-V-Type Natriuretic Peptide 80 pg/mL (0-124) Total Protein 6.8 g/dL (6.4-8.2) Albumin 3.8 g/dL (3.4-5.0) Albumin/Globulin Ratio 1.3 (1.0-1.7) EKG EKG Normal sinus rhythm, rate 95, normal axis, no ST elevations or depressions.[] Radiology/Procedures Radiology/Procedures PORTABLE CHEST 1V dated 01/09/2018 3:20 PM. Comparison: 11/22/2017 Clinical Indication: CHEST PAIN. Findings: Single upright portable exam performed. Heart and mediastinal contours are stable. Lungs are clear without focal consolidation. There is some mild increased density at the infrahilar region on the right relative to the prior exam. No pleural effusion or pneumothorax. Mild bilateral perihilar thickening. Impression: Mild perihilar thickening with patchy infrahilar opacity in the right, nonspecific. This could be related to bronchial inflammatory process, atelectasis or early pneumonia. If indicated, a PA and lateral exam would better evaluate.. Electronically signed by: Nakul Cazares MD (01/09/2018 3:42 PM) [facility] [place] [] Course & Med Decision Making Course & Med Decision Making Pertinent Labs and Imaging studies reviewed. (See chart for details) Her labs are unremarkable, her EKG was unremarkable, her troponin is negative, the chest x-ray did show possible pneumonia on the right. I will go ahead and treat the patient with azithromycin in case this is an early pneumonia. [] Dragon Disclaimer Dragon Disclaimer This electronic medical record was generated, in whole or in part, using a voice recognition dictation system. Departure Departure: Referrals: JANUARY TRINH (PCP) Scripts Levofloxacin (LEVOFLOXACIN) 750 Mg Tablet 1 TAB PO DAILY, #10 TAB Prov: VIK CORDOVA DO 01/09/18 VIK CORDOVA DO January 09, 2018 15:57
[2018-01-09 16:00] VITALS: BP 107/68
[2018-01-09] MEDS ORDERED: LEVO750T5 PO (16:04)
[2018-01-09 16:45] LABS: CLARITY,URINE CLEAR; COLOR,URINE YELLOW; GLUCOSE,URINE NEG (NEG)
[2018-01-09 16:46] LABS: BACTERIA,URINE FEW /HPF (0-FEW); BILIRUBIN,URINE NEG (NEG); NITRITE,URINE NEG (NEG); SQUAMOUS EPITHELIAL CELL,UR MOD /LPF; UROBILINOGEN,URINE 0.2 mg/dL (0.2 mg/dL); WBC,URINE OCC /HPF (0-4)
== END 2018-01-09 16:12 | disposition home or self-care (01) ==
LOC: ER 14:40
DX: R07.89 Other chest pain (principal); J18.9 Pneumonia, unspecified organism; E11.9 Type 2 diabetes mellitus without complications; F41.9 Anxiety disorder, unspecified; J44.9 Chronic obstructive pulmonary disease, unspecified; F32.9 Major depressive disorder, single episode, unspecified; I10 Essential (primary) hypertension; F17.210 Nicotine dependence, cigarettes, uncomplicated; Z88.1 Allergy status to other antibiotic agents; Z88.0 Allergy status to penicillin; Z88.8 Allergy status to other drugs, medicaments and biological substances
CPT/HCPCS: 36415; 71045; 80053; 81001; 83880; 84484; 85025; 93005; 99285-25; J7030